=== PATIENT | male | born 1965 | race Two or more races ===

== ENCOUNTER → 2022-02-17 12:35 | Outpatient (BNVA) | payer OTHER, SELFPAY | PROVIDERS: PCP Family Medicine; Visit Provider Student in an Organized Health Care Education/Training Program | DX: M79.7 Fibromyalgia (principal); Z79.899 Other long term (current) drug therapy | CPT/HCPCS: 99202 ==

== ENCOUNTER → 2022-08-05 11:12 | Outpatient (BNVA) | payer OTHER, SELFPAY | PROVIDERS: PCP Family Medicine; Visit Provider Student in an Organized Health Care Education/Training Program | DX: M79.7 Fibromyalgia (principal) | CPT/HCPCS: 99212 ==

== ENCOUNTER 2025-03-08 11:43 | Outpatient (AMB) | payer OTHER, SELFPAY ==
--- NOTE | 2025-03-08 12:29 | MHC.OFFVIS ---
Intake Visit Reasons: 3m pn Allergies lisinopril Adverse Reaction (Intermediate, Verified 03/08/25 12:35) Unknown Medication List - Last Reconciled 03/08/25 by Zita Sibley CNP amlodipine 10 mg PO DAILY aripiprazole 5 mg PO DAILY bupropion HCl XL 150 mg PO QAM cholecalciferol (vitamin D3) 25 mcg PO DAILY cyclosporine 0.05% (Restasis MultiDose) 3 drps ophthalmic (eye) TID fexofenadine (Allergy Relief (fexofenadine)) 180 mg PO DAILY gabapentin 300 mg PO BEDTIME levothyroxine 200 mcg PO DAILY lorazepam 1 mg PO BEDTIME PRN meclizine 25 mg PO TID metoprolol tartrate 100 mg PO DAILY multivitamin 1 tab PO DAILY HPI Comments Details: 59-year-old man with long history of anxiety and depression following with psychiatrist, and generalized body pain attributed to fibromyalgia for about 10 years following with rheumatology, with burning and electrical sensation in soles of feet when walking and when in bed, and vertigo that occurs episodically with a spinning sensation and imbalance that can last few hours. He was doing okay. He was taking gabapentin at bedtime which may have helped a little, but was still having burning and electrical sensation in feet. Balance was not so good, and he would sometimes use his cane. Using meclizine as needed for vertigo which helps. FM pains all over body continue. Sleep was up and down. He was working with therapist and psychiatrist. [facility] Medical History Allergic rhinitis Asthma BPH (benign prostatic hyperplasia) Chronic insomnia Chronic low back pain Eczema Fibromyalgia ELTON (generalized anxiety disorder) GERD (gastroesophageal reflux disease) Hypertension Hypothyroidism MDD (major depressive disorder) Obesity Plantar fasciitis PTSD (post-traumatic stress disorder) Surgical History History of surgery of head Family History Brother PUD (peptic ulcer disease) Father Cancer of prostate Mother Coronary artery disease Type 2 diabetes mellitus Osteoporosis Sister Coronary artery disease HIV (human immunodeficiency virus infection) History of thyroid disorder FH: ovarian cancer Type 2 diabetes mellitus Social History Household Members Other:: lives alone Housing: Apartment Alcohol intake: never Patient Tobacco Use Status: Never used Tobacco e-Cigarette/Vaping Use: Never Used service: No Current occupational status: disabled Current occupation: used to work in a bakery as helper, currently on disability Review of Systems Const Denies chills, Denies daytime sleepiness, Denies difficulty sleeping, Denies fatigue, Denies fever(s), Denies frequent falls, Reports headache(s), Denies increased appetite, Denies poor appetite, Denies snoring, Denies weakness, Denies weight gain and Denies weight loss Eyes Denies loss of vision ENT Denies vertigo, Reports dizziness, Reports headache(s) and Reports neck pain Card Denies chest pain at rest, Denies chest pain with activity, Denies syncope, Denies leg edema, Denies palpitations, Denies dyspnea and Denies dyspnea on exertion Resp Denies cough, Denies dyspnea, Denies dyspnea on exertion and Denies snoring GI Denies abdominal pain, Denies constipation, Denies heartburn, Denies diarrhea and Denies nausea Denies urinary frequency, Denies urinary incontinence and Denies urinary urgency Musc Denies abnormal gait, Reports back pain, Reports myalgias, Reports arthralgias, Reports neck pain, Denies numbness and Denies tingling Neuro Denies abnormal gait, Denies vertigo, Reports dizziness, Denies syncope, Denies frequent falls, Reports headache(s), Denies lack of coordination, Denies loss of vision, Denies memory loss, Denies numbness, Denies Other visual disturbances, Denies restless legs, Denies seizure-like activity, Denies tingling, Denies paresthesias, Denies tremor(s) and Denies weakness Psych Reports anxiety, Reports depression, Denies auditory hallucinations, Denies memory loss and Denies visual hallucinations Endo Denies fatigue and Denies palpitations Physical Exam Const Other: General Appearance:? normal, in no acute distress. Heart:? S1, S2 normal, no murmurs. Lungs:? clear anteriorly and posteriorly. Musculoskeletal:? normal. Extremities:? no edema. Psych:? alert, oriented, cognitive function intact, cooperative with exam. Neuro Other: Abnormal Neurological Findings:?Absent ankle reflexes. Blunting of pinprick sensation in toes. ? Mental Status: alert and oriented X 3. Normal attention, orientation, memory, and affect. Cranial Nerves: Pupils are equal, round, and reactive to light. External ocular muscles are intact. Visual esteban are full, no ptosis. Face is symmetrical, no facial weakness or droop. Facial sensations are normal. Tongue protrudes in midline. Palate elevates symmetrically. Shoulder shrugging is normal Motor Examination: Normal muscle tone, bulk and strength. No atrophy or fasciculations. No drift of the extended upper extremities. DTR 2+ with absent ankle reflexes. Plantars are flexor. Sensory Exam: As above, otherwise normal light touch, temperature, pinprick, vibration, and joint-position sensations. Rhomberg sign is absent. Coordination: No ataxia. No titubation. Gait Exam: Within normal limits. Cerebellar Signs: Hycldb-dh-ycia is okay. Extrapyramidal System: No tremor, rigidity with normal facial expressions. No bradykinesia. No bradyphrenia. Normal arm swing and posture. No propulsion or retropulsion. Speech: Normal. Results Reviewed Results Reviewed: 11/22/24 NCV/EMG LE Sensory plantars absent bilaterally in the lower extremities. Normal EMG in the L4-S1 innervated muscles. 11/2024 A1c 5.4 Assessment & Plan Assessment & Plan (1) Peripheral neuropathy: Code(s): G62.9 - Polyneuropathy, unspecified Category: Medical Qualifiers: Peripheral neuropathy type: polyneuropathy, unspecified Qualified Code(s): G62.9 - Polyneuropathy, unspecified Plan: Increase gabapentin 300mg 1 capsule twice a day x1 week, then 1 capsule three times a day. (2) Vertigo: Code(s): R42 - Dizziness and giddiness Category: Medical Plan: Continue meclizine 25mg 1 tablet as needed q8h for dizziness #60 for 30 days. (3) Fibromyalgia: Code(s): M79.7 - Fibromyalgia Category: Medical Plan . Medications: New gabapentin 300 mg orally 1 cap twice a day x1 week, then 1 cap three times a day; 270 caps 1RF 90 days Coding Level of Care Code Est Pt Level 4 (10225) Diagnoses Peripheral polyneuropathy G62.9 Peripheral neuropathy type: polyneuropathy, unspecified Vertigo R42 Fibromyalgia M79.7
--- OUTSIDE RECORDS SUMMARY | 2025-03-08 14:56 | XMS_ITS | Clinical Summary ---
Author Organization [facility] Address [address] [place] [id number] Phone Care Team Providers Care Chief Lending Officer Name Role Phone Antonia Chinchilla MD Unavailable [phone] Antonia Chinchilla MD Primary Care Provider Allergies Active Allergy Reactions Criticality Noted Date Comments Lisinopril 02/04/2024 Medications pregabalin (LYRICA) 50 MG capsule Take 50 mg by mouth 2 (two) times a day. Active metoprolol tartrate (LOPRESSOR) 100 MG tablet Take 100 mg by mouth daily. Active amLODIPine (NORVASC) 10 MG tablet Take 10 mg by mouth daily. Active levothyroxine (SYNTHROID, LEVOTHROID) 200 MCG tablet Take 200 mcg by mouth every morning. Active famotidine (PEPCID) 20 MG tablet Take 20 mg by mouth 2 (two) times a day as needed for heartburn. Active montelukast (SINGULAIR) 10 mg tablet Take 10 mg by mouth nightly at bedtime. Active clonazePAM (KLONOPIN) 1 MG tablet Take 1 mg by mouth daily. Active buPROPion (WELLBUTRIN XL) 150 MG ER 24 hr tablet Take 300 mg by mouth daily. Active cholecalciferol (VITAMIN D3) 25 MCG (1,000 unit) tablet Take 1,000 Units by mouth daily. Active ARIPiprazole (ABILIFY) 5 MG tablet Take 5 mg by mouth daily. Active cycloSPORINE (RESTASIS) 0.05 % suspension Place 3 drops into each eye 2 (two) times a day. Active MULTIVITAMIN ORAL Take by mouth daily. Active azelastine (ASTELIN) 137 mcg (0.1 %) nasal spray by Nasal route 2 (two) times a day. 02/13/2024 Active cyclobenzaprine (FLEXERIL) 5 MG tablet TAKE 1 TABLET BY MOUTH AT BEDTIME NEEDED FOR MUSCLE SPASMS FOR UP TO 30 DAYS. 12/21/2023 Active fexofenadine (ISRA) 180 MG tablet Take 180 mg by mouth daily. Active celecoxib (CELEBREX) 100 MG capsuleIndicati ons:Generalized pain Take 1 capsule (100 mg total) by mouth 2 (two) times a day with meals. 180 capsule 04/04/2024 Active Active Problems Problem Noted Date Diagnosed Date Generalized pain 03/03/2024 Overview (03/03/2024): Longstanding fibromyalgia dx; previous rheumatologists include Dr. Ibrahim, Dr. Cordova, Dr. Perez Medication hx: High dose gabapentin not effective Duloxetine not effective No milnacipran trial Current pregabalin 50 mg twice daily inadequate Follows with psychiatry for co-morbid depression and PTSD Assessment & Plan (03/03/2024 3:58 PM EDT): Chronic generalized pain in context of co-morbid depression c/w fibromyalgia dx. General tx approach to fibromyalgia reviewed today, including specifically restorative sleep, medications, low impact aerobic exercise, and counseling to help cope with chronic pain. Written information on fibromyalgia provided for patient review. No specific historical or physical evidence s/o underlying or co-morbid inflammatory arthritis or autoimmune connective tissue disease though no rheumatology records available for my review today. DDx includes underlying or co-morbid peripheral neuropathy as well as OA as below. Patient amenable to trial celecoxib 100 mg twice daily. I have advised him that I do not routinely follow patients for fibromyalgia mgmt, as tx is not rheumatology-specific and can be appropriately directed by his PCP. If celecoxib provides no significant benefit and dedicated neuropathy evaluation is negative recommend trial of slightly increased pregabalin dose, e.g. to 75 mg bid. Sicca syndrome 03/03/2024 Assessment & Plan (03/03/2024 3:57 PM EDT): Multiple medications likely exacerbating xerostomia including pregabalin, cyclobenzaprine, aripiprazole, and bupropion. True Sjogren's unlikely but baseline serologies with next routine labs for completeness. Neuropathic pain of both feet 03/03/2024 Assessment & Plan (03/03/2024 3:54 PM EDT): Hyperalgesia of bl MTPs concerning for possible peripheral neuropathy; baseline labs ordered to be drawn with next routine lab draw. Recommend referral to neurology for dedicated neuropathy evaluation if this has not been previously completed - deferred to PCP. Muscle spasm 03/03/2024 Assessment & Plan (03/03/2024 3:56 PM EDT): Baseline labs; of note probable RLS by most recent sleep study per patient report Family History Medical History Relation Comments Fibromyalgia Sister Relation Status Comments Sister Social History Tobacco Use Types Packs/Day Years Used Date Smoking Tobacco: Never Smokeless Tobacco: Never Alcohol Use Standard Drinks/Week Comments Not Currently 0 (1 standard drink = 0.6 oz pur e alcohol) Education Answer Date Recorded Are you interested in more education? Not on merlene e 09/21/2023 Are you concerned about learning? Not on file 09/21/2023 No 09/21/2023 No 09/21/2023 Digital Access Answer Date Recorded No 09/21/2023 No 09/21/2023 Reliable internet access at home? Not on file 09/21/2023 Device with a working camera? Not on file Sex and Gender Information Value Date Recorded Sex Assigned at Not on file Legal Sex Male 12:59 PM EDT Gender Identity Not on file Sexual Orientation Not on file Last Filed Vital Signs Vital Sign Reading Time Taken Comments Blood Pressure 142/90 03/03/2024 12:48 PM EDT Pulse 84 03/03/2024 12:48 PM EDT Temperature - - Respiratory Rate - - Oxygen Saturation 99% 03/03/2024 12: 48 PM EDT Inhaled Oxygen Concentration - - Weight 99.3 kg (219 lb) 03/03/2024 12:4 8 PM EDT with shoes Height 165.1 cm (5' 5 ) 03/03/2024 12:4 8 PM EDT patient reported Body Mass Index 36.44 03/03/2024 12:48 PM EDT Plan of Treatment Upcoming Encounters Date Type Department Care Team (Late st Contact Info) Description 03/10/2025 11:40 AM EDT Office Visit [facility] Rheumatology [address] [place] [address] Melissa Gautam MD, MPH [address], [address] [place] [address] [address] [place] [address] Health Maintenance Due Date Last Done Comments Adult Td,Tdap Booster 1963 DEPRESSION SCREENING 1975 HEPATITIS C SCREENING 1981 HIV ONE-TIME SCREENING (18-6 5 YEARS) 1981 COLOGUARD 2008 COLONOSCOPY 2008 COLORECTAL CANCER SCREENING 2008 FIT TEST 2008 FOBT 2008 SIGMOIDOSCOPY 2008 VIRTUAL COLONOSCOPY 2008 PNEUMOCOCCAL VACCINES (50+ y ears) (1 of 1 - PCV) 2013 ZOSTER VACCINES (1 of 2) 2013 INFLUENZA VACCINE (#1) 2025 COVID-19 VACCINE ( - 2023-2 5 season) 2025 TSH LEVEL 06/27/2025 06/27/2024 SCREENING FOR DIABETES 03/11/2027 03/11/2024 LIPID PANEL 03/17/2028 03/17/2023 RSV VACCINE (1 - 1-dose 75+ series) 2038 SMOKING STATUS SCREENING (On ce After 26 Yrs) Completed 03/03/2024 HEPATITIS A VACCINES Aged Out No long er eligible based on patient's age to complete this topic HIB VACCINES Aged Out No longer eligi ble based on patient's age to complete this topic MENINGOCOCCAL VACCINES (ACWY) Aged Out No longer eligible based on patient's age to complete this topic MENINGOCOCCAL VACCINES (B) Aged Out N o longer eligible based on patient's age to complete this topic Medical Devices Not on file Insurance MEDICARE REPLACEMENT CARE MEDICARE REPLACEMENT UNIT [address] [place] [address] CARE MEDICARE REPLACEMENT CARE MEDICARE REPLACEMENT MEDICARE REPLACEMENT MEDICARE REPLACEMENT MEDICARE REPLACEMENT [facility] ONE CARE MEDICARE REPLACEMENT [facility] ONE CARE MEDICARE REPLACEMENT Care Teams Chief Lending Officer Relationship Specialty Start Date End Date Antonia Chinchilla MD PCP - General Family Medicine 03/14/24 Antonia Chinchilla MD Family Medicine 03/23/23 Additional Source Comments The information contained in this document represents components of the legal health record. It is not the complete legal health record.[facility]
--- OUTSIDE RECORDS SUMMARY | 2025-03-08 14:56 | XMS_ITS | Clinical Summary ---
Author Organization [place] [address] [facility] Building Address [facility] [place] [address] Phone Care Team Providers Care Liquor Clerk Name Role Phone Johanne Baron DO Primary Care Provider [phone] Allergies Active Allergy Reactions Criticality Noted Date Comments Lisinopril Other 10/18/2021 Throat irritation. Medications ARIPiprazole (ABILIFY) 5 mg tablet Take 1 Tablet by mouth daily. 08/21/19 22 Active clonazePAM (KlonoPIN) 1 mg tablet Take 1 Tablet by mouth daily. Active cycloSPORINE (Restasis MultiDose) 0.05 % drops Place 3 Drops into both eyes 2 Times Daily. 09/16/19 22 Active buPROPion XL (WELLBUTRIN XL) 300 mg 24 hr tablet Take 1 tablet (300 mg total) by mouth 1 (one) time each day. 04/06/20 24 Active celecoxib (CeleBREX) 100 mg capsule Take 1 capsule (100 mg total) by mouth 2 times daily. 04/04/20 24 Active albuterol HFA (PROAIR HFA ; PROVENTIL HFA ; VENTOLIN HFA) 90 mcg/actuation inhaler INHALE 2 PUFFS INTO THE LUNGS EVERY 4 HOURS NEEDED FOR COUGH, WHEEZING OR SHORTNESS OF BREATH. 18 each 1 09/22/19 25 Active amLODIPine (NORVASC) 10 mg tabletIndicatio ns:Primary hypertension Take 1 tablet (10 mg total) by mouth 1 (one) time each day. 90 each 1 10/27/19 25 025 Active metoprolol succinate (TOPROL-XL) 100 mg 24 hr tabletIndicatio ns:Primary hypertension Take 1 tablet (100 mg total) by mouth 1 (one) time each day. Do not crush or chew. 90 each 1 10/27/19 25 025 Active famotidine (PEPCID) 20 mg tabletIndicatio ns:Hypothyroidi sm, unspecified type Take 1 tablet (20 mg total) by mouth 2 (two) times a day. 180 each 1 10/27/19 25 025 Active levothyroxine (SYNTHROID, LEVOTHROID) 200 mcg tablet Take 6 days a week. Skip Sundays 24 tablet 2 02/15/20 25 Active montelukast (SINGULAIR) 10 mg tabletIndicatio ns:Other seasonal allergic rhinitis,Allerg ic rhinitis, unspecified TOME 1 TABLETA POR VIA ORAL TODOS LOS PALMA AL ACOSTARSE 90 tablet 1 03/03/20 25 Active levocetirizine (XYZAL) 5 mg tablet TAKE 1 TABLET BY MOUTH 1 TIME EACH DAY IN THE EVENING. 90 tablet 1 03/08/20 25 Active montelukast (SINGULAIR) 10 mg tabletIndicatio ns:Other seasonal allergic rhinitis,Allerg ic rhinitis, unspecified Take 1 tablet (10 mg total) by mouth at bedtime. 90 tablet 1 09/13/19 25 025 Discontinued levocetirizine (XYZAL) 5 mg tablet Take 1 tablet (5 mg total) by mouth 1 (one) time each day in the evening. 90 tablet 1 09/20/19 25 025 Discontinued levothyroxine (SYNTHROID, LEVOTHROID) 200 mcg tablet Take 1 tablet (200 mcg total) by mouth 1 (one) time each day before breakfast. 30 tablet 2 12/28/19 25 025 Discontinued(Re order) Active Problems Problem Noted Date Diagnosed Date Class 2 severe obesity due t o excess calories with serious comorbidity and body mass index (BMI) of 36.0 to 36.9 in adult ([facility] V24, [facility] V28) 05/19/2024 Generalized pain 03/03/2024 Overview (06/27/2024): Longstanding fibromyalgia dx; previous rheumatologists include Dr. Ibrahim, Dr. Cordova, Dr. Perez Medication hx: High dose gabapentin not effective Duloxetine not effective No milnacipran trial Current pregabalin 50 mg twice daily inadequate Follows with psychiatry for co-morbid depression and PTSD Muscle spasm 03/03/2024 Neuropathic pain of both feet 03/03/2024 Sicca syndrome ([facility] V24) 03/03/2024 Allergic rhinitis 10/18/2021 Asthma 10/18/2021 BPH (benign prostatic hyperplasia) 10/18/2021 Chronic insomnia 10/18/2021 Chronic low back pain 10/18/2021 Fibromyalgia 10/18/2021 Eczema 10/18/2021 External hemorrhoids 10/18/2021 GERD (gastroesophageal reflux disease) Hypothyroidism 10/18/2021 Plantar fasciitis 10/18/2021 Moderate episode of recurren t major depressive disorder ([facility] V24, [facility] V28) 10/14/2021 Primary hypertension 10/14/2021 Generalized anxiety disorder 10/14/2021 PTSD (post-traumatic stress disorder) 10/14/2021 Seasonal allergies 10/14/2021 Encounters Date Type Department Care Team Description 01/23/2025 11:30 AM EDT [facility] [address], [place] [phone] Yamileth Humphreys, SARTHAK Primary hypertension (Primary Dx); Fibromyalgia; Hypothyroidism, unspecified type; Depression with anxiety; Chronic sinusitis, unspecified location 12/13/2024 Telephone Internal Medicine - [address] [phone] Johanne Baron DO 12/13/2024 [facility]phone [facility] [address] [place] [address] Lori Anderson MA from Last 3 Months Immunizations Name Administration Dates Next Due Hepatitis B (Ytwaydt-J-Enxhq , Recombivax HB-Adult) 19yo and older 05/07/2016,01/04/2016,12/03/2015 Influenza Quadravalent, MDCK , 0.5ml, preservative free (Flucelvax) 6mo and older 03/07/2023,05/12/2022,04/11/2020 Influenza Quadrivalent, 0.5m l, preservative free (Fluarix; FluLaval; Fluzone) ages 6mo and older (Afluria) 3yo and older 03/18/2021,03/11/2017,03/18/2016 Influenza trivalent, 0.5mL, preservative free (Fluarix; FluLaval; Fluzone) ages 6mo and older (Afluria) 3 years and older 03/03/2023,03/18/2016 Influenza trivalent, MDCK, 0 .5mL, preservative free (Flucelvax) 6mo and older 03/31/2024 Influenza trivalent, with pr eservative (Fluzone; Afluria) 6mo and older 03/18/2021,03/11/2017,03/18/2016,03/21 Influenza, Unspecified 04/11/2020 MMR, measles mumps and rubel la Live (Priorix; M-M-R II) 12mo and older 04/11/2016 Pneumococcal conjugate 20 va lent (Prevnar 20, PCV 20) 2mo and older 03/07/2023 Pneumococcal polysaccharide 23 valent (Pneumovax 23) 2yo and older 04/11/2016 TD, Adsorbed, Preservative Free 07/24/2009 Tdap Tetanus diptheria acell ular pertussis (Boostrix; Adacel) 7yo and older 01/29/2022 Tetanus Toxoid, Unspecified 07/24/2009 Zoster recombinant (Shingrix ) 19yo and older 04/11/2020,04/11/2020,12/09/2017,12/09 Surgical History Surgery Date Site/Laterality Comments COLONOSCOPY Medical History Medical History Date Comments BPH (benign prostatic hyperplasia) 10/18/2021 DX:BPH (benign prostatic hyperplasia) Chronic insomnia 10/18/2021 DX:Chronic inso mnia Chronic low back pain 10/18/2021 DX:Chronic low back pain Eczema 10/18/2021 DX:Eczema Fibromyalgia 10/18/2021 DX:Fibromyalgia External hemorrhoids 10/18/2021 DX:External hemorrhoids GERD (gastroesophageal reflux disease) 10/18/2021 DX:GERD (gastroesophageal reflux disease) Hypothyroidism 10/18/2021 DX:Hypothyroidis m Plantar fasciitis 10/18/2021 DX:Plantar fas ciitis Generalized anxiety disorder 10/14/2021 DX: Generalized anxiety disorder Asthma 10/18/2021 DX:Asthma Allergic rhinitis 10/18/2021 DX:Allergic rh initis Moderate episode of recurren t major depressive disorder ([facility] V24, [facility] V28) 10/14/2021 DX:Moderate episode of recur rent major depressive disorder (HCC) Primary hypertension 10/14/2021 DX:Primary hypertension PTSD (post-traumatic stress disorder) 10/14/2021 DX:PTSD (post-traumatic stress disorder) Seasonal allergies 10/14/2021 DX:Seasonal a llergies Family History Medical History Relation Name Comments Other: varicose vein Brother 1 No Known Problems Brother 2 Prostate cancer Father No Known Problems Maternal Grandfather Other: PUD Maternal Grandmother Coronary artery disease Mother Type II DM, osteoporosis. No Known Problems Paternal Grandfather No Known Problems Paternal Grandmother Other: hiv Sister 1 Thyroid disease Sister 1 Diabetes Sister 2 Other: ovarian cancer Sister 2 Thyroid disease Sister 2 Coronary artery disease Sister 3 Coronary artery disease Sister 4 Relation Name Status Comments Brother 1 Alive Brother 2 Alive Father Maternal Grandfather Maternal Grandmother Mother Paternal Grandfather Paternal Grandmother Sister 1 Alive Sister 2 Alive Sister 3 Alive Sister 4 Alive Social History Tobacco Use Types Packs/Day Years Used Date Smoking Tobacco: Never Smokeless Tobacco: Never Tobacco Cessation:Counseling Given: Not Answered Housing Instability Answer Date Recorde d Are you worried that in the next 2 months you may not have stable housing? Yes 12/16/2024 Food Access & Nutrition Answer Date Rec orded Do you have access to a vari ety of food including fruits and vegetables? Yes 12/16/2024 Access to Healthcare Answer Date Record ed Within the last 3 months, ho w many times did you visit the emergency department for your medical care? 1 12/16/2024 Health Literacy Answer Date Recorded How often do you need to hav e someone help you when you read instructions, pamphlets, or other written material from your doctor or pharmacy? Sometimes 12/16/2024 Caregiver: How often do you need to have someone help you when you read instructions, pamphlets, or other written material from your doctor or pharmacy? Not on file 12/16/2024 Financial Risk Answer Date Recorded How hard is it for you to pa y for the very basics like food, housing, medical care, and air conditioning / heating? Not very hard 12/16/2024 Transportation Answer Date Recorded Has the lack of transportati on kept you from meetings, work, or from getting things needed for daily living? No 2024 Has the lack of transportati on kept you from medical appointments or from getting medications? Not asked 12/16/2024 Social Isolation Answer Date Recorded How often do you feel lonely or isolated from those around you? Sometimes 12/16/2024 Food Risk Answer Date Recorded Within the past 12 months we worried whether our food would run out before we got money to buy more. Never true 12/16/2024 Within the past 12 months th e food we bought just didn't last and we didn't have money to get more. Never true 12/16/2024 Dependent Care Answer Date Recorded Do you need help finding or paying for care for your loved ones. For example, customer care coordinator or elderly care for an older adult? Patient declined 12/16/2024 Education Answer Date Recorded Do you think completing more education or training, like finishing a GED, going to college, or learning a trade, would be helpful for you? N/A 12/16/2024 Employment and Income Answer Date Recor ded During the last four weeks, have you been actively looking for work? Patient declined 12/16/2024 Living Situation Answer Date Recorded What is your living situation? 0 12/16/2024 Interpersonal Safety Answer Date Record ed Physical Abuse 11/07/2024 Verbal Abuse 11/07/2024 Sex and Gender Information Value Date Recorded Sex Assigned at Not on file Legal Sex Male 11:29 PM EST Gender Identity Not on file Sexual Orientation Not on file Obstetrics History Last Filed Vital Signs Vital Sign Reading Time Taken Comments Blood Pressure 122/86 01/23/2025 11:11 AM EDT Pulse 63 01/23/2025 11:11 AM EDT Temperature 36.2 C (97.2 F) 11/07/2024 3:03 PM EDT Respiratory Rate 14 11/07/2024 3:23 PM EDT Oxygen Saturation 98% 11/07/2024 3:23 PM EDT Inhaled Oxygen Concentration - - Weight 108 kg (237 lb 6.4 oz) 01/23/2025 11:11 A M EDT Height 165.1 cm (5' 5 ) 10/28/2024 9:00 AM EDT Body Mass Index 39.51 10/28/2024 9:00 AM EDT Plan of Treatment Health Maintenance Due Date Last Done Comments HIV Screening 06/01/2022 Medicare Annual Wellness Visit 06/01/2022 RSV Immunization Adult Patients (1 - Risk 60-74 years 1-dose series) 2023 COVID-19 Vaccine (4 - season) 2025 06/13/2021, 10/22/2020, 09/28/2020 Influenza Vaccine (#1) 2025 , 03/07/2023, 03/03/2023, Additional history exists Hypertension/CHF/CAD Annual BMP Blood Test 03/11/2025 03/11/2024, 03/17/2023 Social Influencers of Health Screening 12/16/2025 12/16/2024 Cholesterol Screening (Lipid Panel) 03/17/2028 03/17/2023 DTaP,Tdap,and Td Vaccines (2 - Td or Tdap) 01/30/2032 01/29/2022, 07/24/2009 Colorectal Cancer Screening: Colonoscopy 11/07/2034 11/07/2024, 12/12/2021 MMR Vaccines Aged Out 04/11/2016 No longer eligi ble based on patient's age to complete this topic Hepatitis B Vaccines Completed 05/07/2016, 01/04/2016, 12/03/2015 Zoster Vaccines Completed 04/11/2020, 03/29, 12/09/2017, Additional history exists Hepatitis C Screening Completed 01/28/2022 Pneumococcal Vaccine: 50+ Years Completed 03/07/2023, 04/11/2016 Depression Screening Completed 10/19/2024 HIB Vaccines Aged Out No longer eligi ble based on patient's age to complete this topic HPV Vaccines Aged Out No longer eligi ble based on patient's age to complete this topic Hepatitis A Vaccines Aged Out No long er eligible based on patient's age to complete this topic IPV Vaccines Aged Out No longer eligi ble based on patient's age to complete this topic Meningococcal ACWY Vaccine Aged Out N o longer eligible based on patient's age to complete this topic Meningococcal B Vaccine Aged Out No l onger eligible based on patient's age to complete this topic RSV Immunization Patients Under 20 months Aged Out No longer eligible based on patient's age to complete this topic Varicella Vaccines Aged Out No longer eligible based on patient's age to complete this topic Procedures Procedure Name Priority Date/Time Associated Diagnosis Comments TRIIODOTHYRONINE FREE Routine 02/13/2025 12:24 PM EDT Hypothyroidism, unspecified type FREE THYROXINE WITH REFLEX TO FREE TRIIODOTHYRONINE Routine 02/13/2025 12:24 PM EDT Hypothyroidism, unspecified type THYROID STIMULATING HORMONE WITH REFLEX TO FREE T4 AND FREE T3 Routine 02/13/2025 12:24 PM EDT Hypothyroidism, unspecified type FREE THYROXINE WITH REFLEX TO FREE TRIIODOTHYRONINE Routine 12/26/2024 11:55 AM EDT Hypothyroidism, unspecified type HEMOGLOBIN A1C Routine 12/26/2024 11:55 AM EDT Peripheral neuropathy THYROID STIMULATING HORMONE WITH REFLEX TO FREE T4 AND FREE T3 Routine 12/26/2024 11:55 AM EDT Hypothyroidism, unspecified type COLONOSCOPY Routine 11/07/2024 3:02 PM EDT Personal history of colon polyps, unspecified ANNUAL BMP BLOOD TEST Routine 03/17/2023 LIPID PANEL Routine 03/17/2023 HEPATITIS C SCREENING Routine 01/28/2022 from Last 3 Months or Most Recently Relevant to Health Maintenance Results * (ABNORMAL) Thyroid stimulating hormone with reflex to free t4 and free t3 (02/13/2025 12:24 PM EDT) Only the most recent of2 resultswithin the time period is included. TSH 0.32(L) 0.40 - 4.00 mcIU/mL LAB CHEMISTRY METHOD 02/13/2025 2:40 PM EDT [facility] Blood Venous blood specimen / Unknown Venipuncture / Unknown 02/13/2025 12:24 PM EDT 02/13/2025 12:24 PM EDT us Yamileth Humphreys NP LAB BLOOD ORDERABLES Final Resul t Performing Organization Address [facility] de Phone Number [facility] [address] [place] [address], [place] [phone] * Free thyroxine with reflex to free triiodothyronine (02/13/2025 12:24 PM EDT) Only the most recent of2 resultswithin the time period is included. Free T4 1.57 0.70 - 1.80 ng/dL LAB CHEMISTRY METHOD 02/13/2025 4:27 PM EDT [facility] Blood Venous blood specimen / Unknown Venipuncture / Unknown 02/13/2025 12:24 PM EDT 02/13/2025 12:24 PM EDT us Yamileth Humphreys NP LAB BLOOD ORDERABLES Final Resul t Performing Organization Address [facility] de Phone Number [facility] [address] [place] [address], [place] [phone] * Triiodothyronine free (02/13/2025 12:24 PM EDT) T3, Free 319 230 - 420 pcg/dL LAB CHEMISTRY METHOD 02/13/2025 6:18 PM EDT [facility] Blood Venous blood specimen / Unknown Venipuncture / Unknown 02/13/2025 12:24 PM EDT 02/13/2025 12:24 PM EDT us Yamileth Humphreys NP LAB BLOOD ORDERABLES Final Resul t Performing Organization Address City/[facility] Co de Phone Number [facility] [address] [place] [address], [place] [phone] * Hemoglobin A1c (12/26/2024 11:55 AM EDT) Hemoglobin A1C 5.4 <6.5 % LAB CHEMISTRY METHOD 12/26/2024 9:06 PM EDT [facility] Mean Bld Glu Estim. 108 mg/dL LAB CHEMISTRY METHOD 12/26/2024 9:06 PM EDT [facility] Blood Venous blood specimen / Unknown Venipuncture / Unknown 12/26/2024 11:55 AM EDT 12/26/2024 11:55 AM EDT Zita Sibley NP LAB BLOOD ORDERABLES Jessie justice Result [facility] [address] [place] [address], * COLONOSCOPY Anesthesia - MAC; [facility] ENDOSCOPY (11/07/2024 3:02 PM EDT) Anatomical Region Laterality Modality Endoscopy 11/07/2024 2:49 PM EDT Impressions 11/07/2024 3:05 PM EDT - The entire examined colon is normal on direct and retroflexion views. - No specimens collected. Recommendation: - Repeat colonoscopy in 5 years for surveillance. Narrative 11/07/2024 3:05 PM EDT [facility] GI Patient Name: Srikanth Mahoney Procedure Date: 11/07/2024 2:49 PM Date of : 1965 Age: 59 Room: ROOM 15 Gender: Male Note Status: Finalized Attending MD: Jae Benitez MD, Procedure Date No Time: 11/07/2024 Procedure: Colonoscopy Indications: High risk colon cancer surveillance: Personal history of colonic polyps Providers: Jae Benitez MD Referring MD: Henry Rosario MD Medicines: Propofol per Anesthesia Complications: No immediate complications. Estimated Blood Loss: Estimated blood loss: none. Procedure: Pre-Anesthesia Assessment: - ASA Grade Assessment: II - A patient with mild systemic disease. After I obtained informed consent, the scope was passed under direct vision. Throughout the procedure, the patient's blood pressure, pulse, and oxygen saturations were monitored continuously.The Olympus Colonoscope was introduced through the anus and advanced to the cecum, identified by appendiceal orifice and ileocecal valve. The colonoscopy was performed without difficulty. The patient tolerated the procedure well. The quality of the bowel preparation was adequate. Findings: The perianal and digital rectal examinations were normal. The entire examined colon appeared normal on direct and retroflexion views. Procedure Code(s): --- Professional --- 96647, Colonoscopy, flexible; diagnostic, including collection of specimen(s) by brushing or washing, when performed (separate procedure) G0105, Colorectal cancer screening; colonoscopy on individual at high risk Diagnosis Code(s): --- Professional --- Z86.010, Personal history of colonic polyps CPT copyright 2020 [employer]. All rights reserved. The codes documented in this report are preliminary and upon patient relations liaison review may be revised to meet current compliance requirements. Jae Benitez MD 11/07/2024 3:04:56 PM This report has been signed electronically.Jae Benitez MD Number of Addenda: 0 Note Initiated On: 11/07/2024 2:49 PM Scope In: Scope Out: Endoscopy Department at [facility] - [address] [place] [phone] Procedure Note Jae Benitez MD - 11/07/2024 [facility] GI Patient Name: Srikanth Mahoney Procedure Date: 11/07/2024 2:49 PM Date of : 1965 Age: 59 Room: ROOM 15 Gender: Male Note Status: Finalized Attending MD: Jae Benitez MD, Procedure Date No Time: 11/07/2024 Procedure: Colonoscopy Indications: High risk colon cancer surveillance: Personalhistory of colonic polyps Providers: Jae Benitez MD Referring MD: Henry Rosario MD Medicines: Propofol per Anesthesia Complications: No immediate complications. Estimated Blood Loss: Estimated blood loss: none. Procedure: Pre-Anesthesia Assessment: - ASA Grade Assessment: II - A patient with mild systemic disease. After I obtained informed consent, the scope was passed under direct vision. Throughout theprocedure, the patient's blood pressure, pulse, and oxygen saturations were monitored continuously.The Olympus Colonoscope was introduced through the anus and advanced to the cecum, identified by appendiceal orifice and ileocecal valve. The colonoscopy was performed without difficulty. The patient tolerated the procedure well. The quality of the bowel preparation was adequate. Findings: The perianal and digital rectal examinations were normal. The entire examined colon appeared normal on direct and retroflexion views. Procedure Code(s): --- Professional --- 23381, Colonoscopy, flexible; diagnostic, including collection of specimen(s) by brushing or washing,when performed (separate procedure) G0105, Colorectal cancer screening; colonoscopy on individual at high risk Diagnosis Code(s): --- Professional --- Z86.010, Personal history of colonic polyps CPT copyright 2020 [employer]. All rights reserved. The codes documented in this report are preliminary and upon patient relations liaison reviewmay be revised to meet current compliance requirements. Jae Benitez MD 11/07/2024 3:04:56 PM This report has been signed electronically.Jae Benitez MD Number of Addenda: 0 Note Initiated On: 11/07/2024 2:49 PM Scope In: Scope Out: Endoscopy Department at [facility] - [address] [place] [phone] IMPRESSION: - The entire examined colon is normal on direct and retroflexion views. - No specimens collected. Recommendation: - Repeat colonoscopy in 5 years for surveillance. Henry Rosario MD GI~PROCEDURE ORDERABLES Final Result * Annual BMP Blood Test (03/17/2023) Pathologist [facility] Annual [facility] Blood Test abstracted Historical Provider HEALTH MAINTENANCE Final Result * (ABNORMAL) Lipid panel (03/17/2023) LDL/HDL Ratio 5(A) 0 - 4 Triglycerides 189(A) 0 - 150 mg/dL Cholesterol 191 0 - 200 mg/dL HDL 38(A) >=40 mg/dL LDL Cholesterol 116(A) 0 - 100 mg/dL Blood Venous blood specimen / Unknown Historical Provider LAB BLOOD ORDERABLES Jessie l Result * Hepatitis C Screening (01/28/2022) Hepatitis C Screening abstracted Historical Provider HEALTH MAINTENANCE Final Result from Last 3 Months or Most Recently Relevant to Health Maintenance Insurance [facility] MEDICARE Member Subscriber Plan / Payer (Ef fective 2014-Present) Name:SRIKANTH MAHONEY Relation to Subscriber:Self Name:Srikanth Mahoney Payer ID:[id number] Group ID:[id number] Type:Not on file Address: [place] [address] [address] [phone] Care Teams Liquor Clerk Relationship Specialty Start Date End Date Johanne Baron DO [facility] [place] [address] PCP - General Internal Medicine 05/18/24
== END 2025-03-08 12:50 | disposition home or self-care (01) ==
LOC: HO.HSM 11:43
PROVIDERS: PCP Internal Medicine; Referring Provider Internal Medicine; Visit Provider Registered Nurse
DX: G62.9 Polyneuropathy, unspecified (principal); R42 Dizziness and giddiness; M79.7 Fibromyalgia
CPT/HCPCS: 99214

== ENCOUNTER → 2025-03-08 11:43 | Outpatient (BNVA) | payer OTHER, SELFPAY | PROVIDERS: PCP Internal Medicine; Referring Provider Internal Medicine; Visit Provider Registered Nurse | DX: G62.9 Polyneuropathy, unspecified (principal); R42 Dizziness and giddiness; M79.7 Fibromyalgia | CPT/HCPCS: 99212 ==

== ENCOUNTER 2025-04-06 08:23 | Outpatient (AMB) | payer OTHER, SELFPAY ==
[2025-04-06 08:38] VITALS: BP 150/100; PULSE 93; TEMP 36.1; O2SAT 99; BMI 40.0
--- NOTE | 2025-04-06 08:38 | A.OFFPC_ITS ---
Vital Signs 04/06/25 08:38 Height 5 ft 5 in Weight 240 lb 2 oz BMI 40.0 BP 150/100 H Blood Pressure Location Lt brachial Position Sitting Pulse 93 Pulse Source Pulse Oximeter Temp 97.0 F Temp Source Temporal Artery Scan Pulse Oximetry (%) 99 Oxygen Delivery Method Room Air Intake Visit Reasons: Establish Care Allergies lisinopril Adverse Reaction (Intermediate, Verified 04/06/25 08:41) Unknown Tobacco use date assessed: 04/06/25 Dental Screening Dental Screen Date: 04/06/25 Did you have a dental visit in the last 12 months?: Yes Did you have a dental problem in the last 6 months where you did not have access to dental care?: No Was dental information given to patient?: Patient has dentist HPI HPI Comments History of Present Illness Details The patient is a 59-year-old male presenting for the establishment of care and management of multiple chronic conditions. The patient reports a history of benign prostatic hyperplasia, experiencing nocturia up to four times per night and a sensation of incomplete bladder emptying. He has not been on medication for this condition, and his urologist has advised that medication may be considered if symptoms worsen. The patient has a history of sinusitis with nasal polyps, which has been causing significant nasal obstruction and insomnia due to difficulty breathing at night. He has consulted an ENT specialist who recommended surgery, which the patient has opted for to alleviate symptoms. The patient is on multiple medications including amlodipine for hypertension, which he takes regularly. He also reports taking gabapentin as needed for anxiety prescribed by rheumatology, and levothyroxine for thyroid management. The patient experiences chronic arm pain, for which he uses a TENS unit at home for relief. He has tried [id number] medications like Tylenol and ibuprofen with limited relief. The patient reports symptoms of gastroesophageal reflux disease, for which he has been prescribed famotidine. He reports history precancerous polyps in the stomach, which were removed surgically but no records of it in the patient chart. [facility] Medical History (Updated 04/06/25 @ 10:10 by Rachelle Guevara MD) Plantar fasciitis Eczema Allergic rhinitis Asthma Fibromyalgia Chronic insomnia ELTON (generalized anxiety disorder) PTSD (post-traumatic stress disorder) MDD (major depressive disorder) Chronic low back pain BPH (benign prostatic hyperplasia) GERD (gastroesophageal reflux disease) Hypothyroidism Obesity Hypertension Surgical History History of surgery of head Family History Brother PUD (peptic ulcer disease) Father Cancer of prostate Mother Coronary artery disease Type 2 diabetes mellitus Osteoporosis Sister Coronary artery disease HIV (human immunodeficiency virus infection) History of thyroid disorder FH: ovarian cancer Type 2 diabetes mellitus Social History Household Members Other:: lives alone Housing: Apartment Alcohol intake: never Patient Tobacco Use Status: Never used Tobacco e-Cigarette/Vaping Use: Never Used service: No Current occupational status: disabled Current occupation: used to work in a bakery as helper, currently on disability Cognitive needs: No Hearing needs: No Vision needs: Yes Questionnaire PHQ-9 Over the last 2 weeks, how often have you been bothered by any of the following problems? 1. Little interest or pleasure in doing things: several days 2. Feeling down, depressed, or hopeless: several days 3. Trouble falling or staying asleep, or sleeping too much: several days 4. Feeling tired or having little energy: several days 5. Poor appetite or overeating: not at all 6. Feeling bad about yourself - or that you are a failure or have let yourself or your family down: not at all 7. Trouble concentrating on things, such as reading the newspaper or watching television: several days 8. Moving or speaking so slowly that other people could have noticed. Or the opposite - being so fidgety or restless that you have been moving around a lot more than usual: not at all 9. Thoughts that you would be better off or of hurting yourself in some way: not at all Total score: 5 Depression Screening Interpretation: Positive (Follows with psychiatrist) Depression Screening Follow-up: In treatment Depression Screening Done: Yes 34832 - PHQ-9 Billing: Yes Source: Developed by Drs. Reed Bernal, Claribel Forbes, Paul Brothers and colleagues, with an educational kiersten from [employer]. Thrive Questionnaire Date Thrive assessed: 03/30/25 I am a: Patient What is your living situation today?: I have a steady place to live Within the past 12 months, did the food you bought not last and you didn't have the money to get more?: I choose not to answer this question Within the past 12 months, did you worry whether your food would run out before you got money to buy more?: I choose not to answer this question Do you have trouble paying for medicines?: I choose not to answer this question Do you have trouble getting transportation to medical appointments?: No Do you have trouble paying your heating and electricity bill?: I choose not to answer this question Do you have trouble taking care of your child, family member or friend?: I choose not to answer this question Do you have trouble with day-to-day activities such as bathing, preparing meals, shopping, managing finances, etc.?: I choose not to answer this question Are you currently unemployed and looking for a job?: I choose not to answer this question Are you interested in more education?: I choose not to answer this question Please select the resources that you would like help with: None Currently or been in a relationship where the following occur: I choose not to answer THRIVE Score: 0 AUDIT C Alcohol Use Questionnaire (AUDIT-C) 1. How often do you have a drink containing alcohol?: Never 3. How often do you have six or more drinks on one occasion?: Never Total Score: 0 ELTON-7 AMB Questionnaire ELTON-7 Date ELTON - 7 assessed: 04/06/25 Feeling nervous, anxious, or on edge: 1 = Several days Not being able to stop or control worryin = Several days Worrying too much about different things: 1 = Several days Trouble relaxin = Several days Being so restless that it is hard to sit still: 1 = Several days Becoming easily annoyed or irritable: 1 = Several days Feeling afraid as if something awful might happen: 0 = Not at all Total ELTON-7 score (0-4 normal; 5-9 mild; 10-14 moderate; 15-21 severe): 6 Source: Developed by Drs. Reed Bernal, Claribel Forbes, Paul Brothers and colleagues, with an educational kiersten from [employer]. ELTON-7 Assessment Billing ELTON-7 Assessment Tool: ELTON-7 Assessment 37446 Review of Systems Const Details: Positives besides what was mentioned in HPI are in BOLD Constitutional: No Weight Change, No Fever, No Chills, No Night Sweats, No Fatigue, No Malaise ENT/Mouth: No Hearing Changes, No Ear Pain, No Nasal Congestion, No Sinus Pain, No Hoarseness, No sore throat, No Rhinorrhea, No Swallowing Difficulty Eyes: No Eye Pain, No Swelling, No Redness, No Foreign Body, No Discharge, No Vision Changes Cardiovascular: No Chest Pain, No SOB, No PND, No Dyspnea on Exertion, No Orthopnea, No Claudication, No Edema, No Palpitations Respiratory: No Cough, No Sputum, No Wheezing, No Smoke Exposure, No Dyspnea Gastrointestinal: No Nausea, No Vomiting, No Diarrhea, No Constipation, No Pain, No Heartburn, No Anorexia, No Dysphagia, No Hematochezia, No Melena, No Flatulence, No Jaundice Genitourinary: No Dysmenorrhea, No DUB, No Dyspareunia, No Dysuria, No Urinary Frequency, No Hematuria, No Urinary Incontinence, No Urgency, No Flank Pain, No Urinary Flow Changes, No Hesitancy Musculoskeletal: No Arthralgias, No Myalgias, No Joint Swelling, No Joint Stiffness, No Back Pain, No Neck Pain, No Injury History Skin: No Skin Lesions, No Pruritis, No Hair Changes, No Breast/Skin Changes, No Nipple Discharge Neuro: No Weakness, No Numbness, No Paresthesias, No Loss of Consciousness, No Syncope, No Dizziness, No Headache, No Coordination Changes, No Recent Falls Psych: No Anxiety/Panic, No Depression, No Insomnia, No Personality Changes, No Delusions, No Rumination, No SI/HI/AH/VH, No Social Issues, No Memory Changes, No Violence/Abuse Hx., No Eating Concerns Heme/Lymph: No Bruising, No Bleeding, No Transfusions History, No Lymphadenopathy Endocrine: No Polyuria, No Polydipsia, No Temperature Intolerance Physical exam (Primary Care) Vital Signs: Last Vital Signs Temp 97.0 F 04/06/25 08:38 Pulse 93 04/06/25 08:38 BP 150/100 H 04/06/25 08:38 Pulse Ox 99 04/06/25 08:38 Oxygen Delivery Method Room Air 04/06/25 08:38 BMI result Body Mass Index 40.0 Tobacco/Smoking Status: Tobacco use Status Tobacco use date assessed 04/06/25 04/06/25 08:45 Patient Tobacco Use Status Never used Tobacco 04/06/25 08:45 e-Cigarette/Vaping Use Never Used 04/06/25 08:45 PHQ-9: PHQ-9 Score PHQ-9: Total score 5 04/06/25 08:45 Depression Screening Interpretation: Positive (Follows with psychiatrist) Depression Screening Follow-up: In treatment Thrive Assessment: Date of Thrive Assessment Date Thrive assessed 03/30/25 04/06/25 08:45 Currently or been in a relationship where the following occur: I choose not to answer Const Other: Pertinent findings are in BOLD GENERAL APPEARANCE NAD, activity normal for age, well developed/ well nourished, no cyanosis, pallor, or diaphoresis. EYES lids/conjunctiva normal. EARS/NOSE/THROAT Mucous membranes moist, nares normal, lips/teeth normal uvula midline without oral pharyngeal erythema, exudate or swelling TMs normal bilaterally. No lymphangitis/lymphedema. HEAD/NECK normocephalic atraumatic, no facial trauma, neck is supple. RESPIRATORY respiratory effort normal, speaks in full sentences, no tripod position, no accessory muscle use. Lungs clear to auscultation without rhonchi, wheezes, rales CARDIAC Regular rate and rhythm, no edema. ABDOMINAL Soft, ND/NT. No evidence of fluid wave. No pulsatile masses on exam, rebound tenderness, Buchanan sign or pain over Mcburney's point. MUSCLES/EXTREMITIES No abnormal range of motion, no swelling. SKIN Warm, pink and dry. No rashes, dermatoses, petechiae or lesions. NEUROLOGICAL Speech is clear and appropriate. Normal level of consciousness. Gait and coordination are normal. 5/5 strength in all extremities. PSYCH Normal mood and affect. Judgement/competence is appropriate Coding Level of Care Code Est Pt Level 5 (60493) Diagnoses Healthcare maintenance Z00.00 Hypothyroidism E03.9 Fibromyalgia M79.7 MDD (major depressive disorder) F32.9 ELTON (generalized anxiety disorder) F41.1 Vertigo R42 Vitamin D deficiency E55.9 Nasal sinus polyp J33.8 Arm pain M79.603 GERD (gastroesophageal reflux disease) K21.9 Hypertension I10 Additional Codes ELTON-7 Assessment Billing - ELTON-7 Assessment Tool: ELTON-7 Assessment 03765 ([id number]) PHQ-9 - 49989 - PHQ-9 Billing: Yes ([id number]) Time Spent (min) 40 Assessment & Plan Assessment & Plan (1) Healthcare maintenance: Code(s): Z00.00 - Encounter for general adult medical examination without abnormal findings Category: Medical Plan: CBC, CMP, Lipid panel, A1C, TSH w T4, vit D. Ordered today.. Shingles 2 doses when >50 yo. Completed. As per patient. COVID: two doses. Completed in the past. As per patient. Pneumococcal: 19-64. Completed in the past. As per patient. Flu vaccine: Completed. Colonoscopy: 45-75. Reports completed it two years ago. He will bring the results next visit. Tdap: Patient will bring results next visit. AAA: 65 -75. NI[address] CT lun - 80. NI. PSA: 50 -70 every two years. HIV: ordered today. HBV: ordered today. HCV: ordered today. (2) Hypothyroidism: Code(s): E03.9 - Hypothyroidism, unspecified Category: Medical Plan: Continue Levothyroxine. Repeat labs ordered today. (3) Fibromyalgia: Code(s): M79.7 - Fibromyalgia Category: Medical Plan: Continue Abilify, Gabapentin PRN. Prescribed by rheumatology. (4) MDD (major depressive disorder): Code(s): F32.9 - Major depressive disorder, single episode, unspecified Category: Medical Plan: Continue Bupropion and clonazepam as prescribed by psychiatrist. Follows with psychiatrist. (5) ELTON (generalized anxiety disorder): Code(s): F41.1 - Generalized anxiety disorder Category: Medical Plan: Same as under MDD. (6) Vertigo: Code(s): R42 - Dizziness and giddiness Category: Medical Plan: Started Meclizine 25 mg daily PRN. (7) Vitamin D deficiency: Code(s): E55.9 - Vitamin D deficiency, unspecified Category: Medical Plan: Continue vit D. Repeat labs ordered today. (8) Nasal sinus polyp: Code(s): J33.8 - Other polyp of sinus Category: Medical Plan: - Surgery planned to alleviate nasal obstruction and improve breathing. (9) Arm pain: Code(s): M79.603 - Pain in arm, unspecified Category: Medical Plan: - Use TENS unit for pain relief and consider [id number] analgesics as needed. (10) GERD (gastroesophageal reflux disease): Code(s): K21.9 - Gastro-esophageal reflux disease without esophagitis Category: Medical Plan: - Continue famotidine for symptom management. (11) Hypertension: Code(s): I10 - Essential (primary) hypertension Category: Medical Plan: Amlodipine, Metoprolol. Plan During the visit, we discussed the patient's multiple chronic conditions, including benign prostatic hyperplasia, sinusitis with nasal polyps, hyp ertension, insomnia, arm pain, and gastroesophageal reflux disease. We agreed on a plan to monitor the symptoms of benign prostatic hyperplasia and consider medication if necessary. The patient opted for surgery to address the nasal polyps, which should help alleviate the associated insomnia. We will continue the current hypertension management with amlodipine and use famotidine for gastroesophageal reflux disease. For arm pain, the patient will continue using a TENS unit and consider [id number]-[id number] analgesics. This includes time spent before the visit reviewing the chart, time spent during the visit, and time spent after the visit and documentation. Medications: New amlodipine 10 mg PO DAILY 90 tabs 3RF cholecalciferol (vitamin D3) 25 mcg PO DAILY 90 caps 3RF famotidine 20 mg PO BID PRN 90 tabs 3RF heartburn levothyroxine 200 mcg PO DAILY 90 tabs 3RF metoprolol tartrate 100 mg PO DAILY 30 tabs 3RF fexofenadine (Allergy Relief (fexofenadine)) 180 mg PO DAILY 90 tabs 3RF Changed From meclizine 25 mg PO TID To meclizine 25 mg PO DAILY PRN 30 tabs 3RF dizziness
== END 2025-04-06 09:30 | disposition home or self-care (01) ==
PROVIDERS: PCP Internal Medicine; Visit Provider Internal Medicine
DX: Z00.00 Encounter for general adult medical examination without abnormal findings (principal); E03.9 Hypothyroidism, unspecified; M79.7 Fibromyalgia; F32.9 Major depressive disorder, single episode, unspecified; F41.1 Generalized anxiety disorder; R42 Dizziness and giddiness; E55.9 Vitamin D deficiency, unspecified; J33.8 Other polyp of sinus; M79.603 Pain in arm, unspecified; K21.9 Gastro-esophageal reflux disease without esophagitis; I10 Essential (primary) hypertension

== ENCOUNTER → 2025-04-06 08:23 | Outpatient (BNVA) | payer OTHER, SELFPAY | PROVIDERS: PCP Internal Medicine; Visit Provider Internal Medicine | DX: Z00.00 Encounter for general adult medical examination without abnormal findings (principal); E03.9 Hypothyroidism, unspecified; M79.7 Fibromyalgia; F32.9 Major depressive disorder, single episode, unspecified; F41.1 Generalized anxiety disorder; R42 Dizziness and giddiness; E55.9 Vitamin D deficiency, unspecified; J33.8 Other polyp of sinus; M79.603 Pain in arm, unspecified; K21.9 Gastro-esophageal reflux disease without esophagitis; I10 Essential (primary) hypertension; Z79.899 Other long term (current) drug therapy; Z13.31 Encounter for screening for depression; Z13.39 Encounter for screening examination for other mental health and behavioral disorders | CPT/HCPCS: 96127; 99396 ==

== ENCOUNTER 2025-04-13 07:46 | Outpatient (REF) | payer OTHER, SELFPAY ==
--- OUTSIDE RECORDS SUMMARY | 2025-04-13 07:50 | XMS_ITS | Clinical Summary ---
Author Organization [place] [address] [address] [facility] Building Address [facility] [place] [address] Phone Care Team Providers Care Manufacturing Assistant Name Role Phone Johanne Baron DO Primary Care Provider [phone] Allergies Active Allergy Reactions Criticality Noted Date Comments Lisinopril Other 10/18/2021 Throat irritation. Medications ARIPiprazole (ABILIFY) 5 mg tablet Take 1 Tablet by mouth daily. 2 Active clonazePAM (KlonoPIN) 1 mg tablet Take 1 Tablet by mouth daily. Active cycloSPORINE (Restasis MultiDose) 0.05 % drops Place 3 Drops into both eyes 2 Times Daily. 2 Active buPROPion XL (WELLBUTRIN XL) 300 mg 24 hr tablet Take 1 tablet (300 mg total) by mouth 1 (one) time each day. 4 Active celecoxib (CeleBREX) 100 mg capsule Take 1 capsule (100 mg total) by mouth 2 times daily. 4 Active albuterol HFA (PROAIR HFA ; PROVENTIL HFA ; VENTOLIN HFA) 90 mcg/actuation inhaler INHALE 2 PUFFS INTO THE LUNGS EVERY 4 HOURS NEEDED FOR COUGH, WHEEZING OR SHORTNESS OF BREATH. 18 each 1 5 Active amLODIPine (NORVASC) 10 mg tabletIndications :Primary hypertension Take 1 tablet (10 mg total) by mouth 1 (one) time each day. 90 each 1 5 04/24/20 25 Active metoprolol succinate (TOPROL-XL) 100 mg 24 hr tabletIndications :Primary hypertension Take 1 tablet (100 mg total) by mouth 1 (one) time each day. Do not crush or chew. 90 each 1 5 04/24/20 25 Active famotidine (PEPCID) 20 mg tabletIndications :Hypothyroidism, unspecified type Take 1 tablet (20 mg total) by mouth 2 (two) times a day. 180 each 1 5 04/24/20 25 Active levothyroxine (SYNTHROID, LEVOTHROID) 200 mcg tablet Take 6 days a week. Skip Sundays 24 tablet 2 5 Active montelukast (SINGULAIR) 10 mg tabletIndications :Other seasonal allergic rhinitis,Allergic rhinitis, unspecified TOME 1 TABLETA POR VIA ORAL TODOS LOS PALMA AL ACOSTARSE 90 tablet 1 5 Active levocetirizine (XYZAL) 5 mg tablet TAKE 1 TABLET BY MOUTH 1 TIME EACH DAY IN THE EVENING. 90 tablet 1 5 Active Active Problems Problem Noted Date Diagnosed Date Class 2 severe obesity due t o excess calories with serious comorbidity and body mass index (BMI) of 36.0 to 36.9 in adult 05/19/2024 Generalized pain 03/03/2024 Overview (06/27/2024): Longstanding fibromyalgia dx; previous rheumatologists include Dr. Ibrahim, Dr. Cordova, Dr. Perez Medication hx: High dose gabapentin not effective Duloxetine not effective No milnacipran trial Current pregabalin 50 mg twice daily inadequate Follows with psychiatry for co-morbid depression and PTSD Muscle spasm 03/03/2024 Neuropathic pain of both feet 03/03/2024 Sicca syndrome ([facility] V24) 03/03/2024 Allergic rhinitis 10/18/2021 Asthma 10/18/2021 BPH (benign prostatic hyperplasia) 10/18/2021 Chronic insomnia 10/18/2021 Chronic low back pain 10/18/2021 Fibromyalgia 10/18/2021 Eczema 10/18/2021 External hemorrhoids 10/18/2021 GERD (gastroesophageal reflux disease) Hypothyroidism 10/18/2021 Plantar fasciitis 10/18/2021 Moderate episode of recurren t major depressive disorder (CMS/[facility] V24, CMS/[facility] V28) 10/14/2021 Primary hypertension 10/14/2021 Generalized anxiety disorder 10/14/2021 PTSD (post-traumatic stress disorder) 10/14/2021 Seasonal allergies 10/14/2021 Encounters Date Type Department Care Team Description 01/23/2025 11:30 AM EDT Office Visit Internal Medicine - [facility] [address] [place] [id number] Yamileth Humphreys NP Primary hypertension (Primary Dx); Fibromyalgia; Hypothyroidism, unspecified type; Depression with anxiety; Chronic sinusitis, unspecified location from Last 3 Months Immunizations Immunization Administration Dates Next Due Hepatitis B (Eofxosy-C-Dqdwm , Recombivax HB-Adult) 19yo and older 05/07/2016,01/04/2016,12/03/2015 [...] episode of recurren t major depressive disorder (CMS/HCC V24, CMS/HCC V28) 10/14/2021 DX:Moderate episode of recur rent major depressive disorder ([facility]) Primary hypertension 10/14/2021 DX:Primary hypertension PTSD (post-traumatic [...] care for your loved ones. For example, director maternal child or elderly care for an older adult? [...] Date Recorded What is your living situation? Unrecognized valu e 12/16/2024 Interpersonal Safety Answer Date Record ed Physical Abuse Unrecognized value 11/07/2024 Verbal Abuse Unrecognized value 11/07/2024 Sex and Gender Information Value Date [...] Health Maintenance Due Date Last Done Comments RSV Immunization Adult Patients (1 - Risk 50-74 years 1-dose series) 2013 HIV Screening 06/01/2022 Medicare Annual Wellness Visit 06/01/2022 COVID-19 Vaccine ( season) 2025 06/13/2021, 10/22/2020, 09/28/2020 Influenza Vaccine [...] 02/13/2025 12:24 PM EDT Hypothyroidism, unspecified type COLONOSCOPY Routine 11/07/2024 3:02 PM EDT Personal history of colon polyps, unspecified ANNUAL BMP BLOOD TEST Routine 03/17/2023 LIPID PANEL Routine 03/17/2023 HEPATITIS C SCREENING Routine 01/28/2022 from Last 3 Months or Most Recently Relevant to Health Maintenance Results * (ABNORMAL) Thyroid stimulating hormone with reflex to free t4 and free t3 (02/13/2025 12:24 PM EDT) TSH 0.32(L) 0.40 - 4.00 mcIU/mL LAB CHEMISTRY METHOD 02/13/2025 2:[address] [facility] Blood Venous blood specimen / Unknown Venipuncture / Unknown 02/13/2025 12:24 PM EDT 02/13/2025 12:24 PM EDT us Yamileth Humphreys NP LAB BLOOD ORDERABLES Final Resul t Performing Organization Address [facility] Co de Phone Number [facility] [address] [place] [address], * Free thyroxine with reflex to free triiodothyronine (02/13/2025 12:24 PM EDT) Free T4 1.57 0.70 - 1.80 ng/dL LAB CHEMISTRY METHOD 02/13/2025 4:[address] [facility] Blood Venous blood specimen / Unknown Venipuncture / Unknown 02/13/2025 12:24 PM EDT 02/13/2025 12:24 PM EDT us Yamileth Humphreys NP LAB BLOOD ORDERABLES Final Resul t Performing Organization Address City/[facility]/ZIP Co de Phone Number [facility] [address] [place] [address], [place] [phone] * Triiodothyronine free (02/13/2025 12:24 PM EDT) T3, Free 319 230 - 420 pcg/dL LAB CHEMISTRY METHOD 02/13/2025 6:[address] [facility] Blood Venous blood specimen / Unknown Venipuncture / Unknown 02/13/2025 12:24 PM EDT 02/13/2025 12:24 PM EDT Yamileth Petr DE LEÓN LAB BLOOD ORDERABLES Final Resul t [facility] [address] [place] [address], * COLONOSCOPY Anesthesia - MAC; [facility] ENDOSCOPY (11/07/2024 3:02 PM EDT) Anatomical Region Laterality Modality Endoscopy 11/07/2024 2:49 PM EDT Impressions 11/07/2024 3:05 PM EDT - The entire examined colon is normal on direct and retroflexion views. - No specimens collected. Recommendation: - Repeat colonoscopy in 5 years for surveillance. Narrative 11/07/2024 3:05 PM EDT [facility] GI Patient Name: Srikanth Mahoney Procedure Date: [...] retroflexion views. Procedure Code(s): --- Professional --- 93462, Colonoscopy, flexible; diagnostic, including collection of specimen(s) by brushing or washing, when performed (separate procedure) G0105, Colorectal cancer screening; colonoscopy on individual at high risk Diagnosis Code(s): --- Professional --- Z86.010, Personal history of colonic polyps CPT copyright 2020 [employer]. All rights reserved. The codes documented in this report are preliminary and upon custom framing specialist review may be revised to meet current compliance requirements. Jae Benitez MD 11/07/2024 3:04:56 PM This report has been signed electronically.Jae Benitez MD Number of Addenda: 0 Note Initiated On: 11/07/2024 2:49 PM Scope In: Scope Out: Endoscopy Department at [facility] - [address] [place] [id number] Procedure Note Jae Benitez MD - 11/07/2024 [facility] GI Patient Name: Srikanth Mahoney Procedure Date: [...] retroflexion views. Procedure Code(s): --- Professional --- 10007, Colonoscopy, flexible; diagnostic, including collection of specimen(s) by brushing or washing,when performed (separate procedure) G0105, Colorectal cancer screening; colonoscopy on individual at high risk Diagnosis Code(s): --- Professional --- Z86.010, Personal history of colonic polyps CPT copyright 2020 [employer]. All rights reserved. The codes documented in this report are preliminary and upon custom framing specialist reviewmay be revised to meet current compliance requirements. Jae Benitez MD 11/07/2024 3:04:56 PM This report has been signed electronically.Jae Benitez MD Number of Addenda: 0 Note Initiated On: 11/07/2024 2:49 PM Scope In: Scope Out: Endoscopy Department at [address] [id number] IMPRESSION: - The entire examined colon is normal on direct and retroflexion views. - No specimens collected. Recommendation: - Repeat colonoscopy in 5 years for surveillance. Henry Rosario MD GI~PROCEDURE ORDERABLES Final Result * Annual BMP Blood Test (03/17/2023) [facility] Annual BMP Blood Test abstracted Result [facility] Provider HEALTH MAINTENANCE Final Result * (ABNORMAL) Lipid panel (03/17/2023) [facility] LDL/HDL Ratio 5(A) 0 - 4 Triglycerides 189(A) 0 - 150 mg/dL Cholesterol 191 0 - 200 mg/dL HDL 38(A) >=40 mg/dL LDL Cholesterol 116(A) 0 - 100 mg/dL Blood Venous blood specimen / Unknown Result [facility] Historical Provider LAB BLOOD ORDERABLES Jessie l Result * Hepatitis C Screening (01/28/2022) [facility] Hepatitis C Screening abstracted [facility] HEALTH MAINTENANCE Final Result from Last 3 Months or Most Recently Relevant to Health Maintenance Insurance [facility] MEDICARE Member Subscriber Plan / Payer (Ef fective 2014-Present) Name:SRIKANTH MAHONEY Relation to Subscriber:Self Name:Sriknath Mahoney Payer ID:[id number] Group ID:[id number] Type:Not on file Address: [address] [facility] [place] [address] Care Teams Manufacturing Assistant Relationship Specialty Start Date End Date Johanne Baron DO [address] [place] [address] PCP - General Internal Medicine 05/18/24
--- OUTSIDE RECORDS SUMMARY | 2025-04-13 07:50 | XMS_ITS | Clinical Summary ---
Author Organization [facility] Address [address] [place] [phone] Phone Care Team Providers Care Clerk Operator Name Role Phone Antonia Chinchilla MD Unavailable [phone] Antonia Chinchilla MD Primary Care Provider Allergies [...] Active Problems Problem Noted Date Diagnosed Date Primary osteoarthritis of both knees 03/10/2025 Assessment & Plan (03/10/2025 12:43 PM EDT): Moderate symptomatic benefit with current celecoxib. Focus discussions of weight loss and quadricep strengthening exercise deferred to primary care physician. Generalized pain 03/03/2024 Overview (03/10/2025): Longstanding fibromyalgia dx; previous rheumatologists include Dr. Ibrahim, Dr. Cordova, Dr. Perez Medication hx: High dose gabapentin not effective Duloxetine not effective No milnacipran trial Previous pregabalin 50 mg twice daily inadequate Follows with psychiatry for co-morbid depression and PTSD Assessment & Plan (03/10/2025 12:42 PM EDT): Fibromyalgia / peripheral neuropathy overlap. I do not have any rheumatology specific interventions to offer this patient given the absence of co-morbid or underlying inflammatory rheumatologic disease. Dedicated discussions of counseling to help cope with chronic pain, as well as benefit of regular routine of low impact aerobic exercise, deferred to his primary care physician. Assessment & Plan (03/03/2024 3:58 PM EDT): [...] to 75 mg bid. Sicca syndrome 03/03/2024 Overview (03/10/2025): SSA negative SSB negative (02/2024) Assessment & Plan (03/10/2025 12:40 PM EDT): Sjogren's significantly less likely given negative Sjogren's serologies. Certainly he is taking multiple medications that can contribute to oral sicca, including cyclobenzaprine, aripiprazole, and bupropion. Assessment & Plan (03/03/2024 3:57 PM EDT): Multiple medications likely exacerbating xerostomia including pregabalin, cyclobenzaprine, aripiprazole, and bupropion. True Sjogren's unlikely but baseline serologies with next routine labs for completeness. Neuropathic pain 03/03/2024 Overview (03/10/2025): Bilateral hands and feet [place] neurology evaluation 02/2025, documentation not available for my review today Pregabalin (50 mg twice daily) previously incompletely effective Assessment & Plan (03/10/2025 12:39 PM EDT): Reviewed with patient today that the pattern of burning pain and abnormal sensation of his bilateral hands and feet favors peripheral neuropathy, and that he needs neurology follow-up as planned. I have encouraged him to start the gabapentin recently prescribed by his neurologist. There is no historical, physical, or serologic evidence suggestive of underlying inflammatory arthritis or autoimmune connective tissue disease. There is no current indication for further rheumatology-specific evaluation or follow-up. I am happy to reevaluate for any clinically relevant change. Assessment & Plan (03/03/2024 3:54 PM EDT): [...] most recent sleep study per patient report Encounters Date Type Department Care Team Description 03/10/2025 11:40 AM EDT Office Visit [facility] Rheumatology [address] [place] [address] Melissa Gautam MD, MPH Neuropathic pain (Primary Dx); Sicca syndrome; Generalized pain; Primary osteoarthritis of both knees from Last 3 Months Family History Medical History Relation Comments Fibromyalgia Sister Relation Status Comments Sister Social History Tobacco Use Types Packs/Day Years Used Date Smoking Tobacco: Never Smokeless Tobacco: Never Tobacco Cessation:Counseling Given: Not Answered Alcohol Use Standard Drinks/Week Comments Not Currently [...] Pressure 142/90 03/03/2024 12:48 PM EDT Pulse 82 03/10/2025 10:50 AM EDT Temperature 36.3 C (97.3 F) 03/10/2025 10:50 AM EDT Respiratory Rate - - Oxygen Saturation 99% 03/03/2024 12: 48 PM EDT Inhaled Oxygen Concentration - - Weight 101.6 kg (224 lb) 03/10/2025 10: 50 AM EDT Height 165.1 cm (5' 5 ) 03/03/2024 12:4 8 PM EDT patient reported Body Mass Index 37.28 03/03/2024 12:48 PM EDT Plan of Treatment Health Maintenance Due Date Last Done Comments Adult Td,Tdap Booster 1963 DEPRESSION SCREENING 1975 HEPATITIS C SCREENING 1981 HIV ONE-TIME SCREENING (18-65 YEARS) 1981 COLOGUARD 2008 COLONOSCOPY 2008 COLORECTAL CANCER SCREENING 2008 FIT TEST 2008 FOBT 2008 SIGMOIDOSCOPY 2008 VIRTUAL COLONOSCOPY 2008 PNEUMOCOCCAL VACCINES (50+ years) (1 of 1 - PCV) 2013 ZOSTER VACCINES (1 of 2) 2013 INFLUENZA VACCINE (#1) 2025 COVID-19 VACCINE ( - 2024- season) 2025 TSH LEVEL 02/13/2026 02/13/2025, 11/29, 10/26/2024, Additional history exists SCREENING FOR DIABETES 03/11/2027 03/11/2024 LIPID PANEL 03/17/2028 03/17/2023 RSV VACCINE (1 - 1-dose 75+ series) 2038 SMOKING STATUS SCREENING (Once After 26 Yrs) Completed 03/10/2025 HEPATITIS A VACCINES Aged Out No long [...] topic Medical Devices Not on file Insurance [facility] ONE CARE MEDICARE REPLACEMENT CARE MEDICARE REPLACEMENT UNIT [address] [place] [address] CARE MEDICARE REPLACEMENT CARE MEDICARE REPLACEMENT [employer] ONE CARE [address]IC[address] [place] [address] [place] [id number] [place] [address] MEDIC[address] RE[address] [place] [address] [place] [address] [place] [address] ONE CARE MEDICARE REPLACEMENT Care Teams Clerk Operator Relationship Specialty Start Date End Date Antonia Chinchilla MD PCP - General Family Medicine 03/14/24 Antonia Chinchilla MD Family Medicine 03/23/23 Additional Source Comments The information contained in this document represents components of the legal health record. It is not the complete legal health record.[facility]
--- OUTSIDE RECORDS SUMMARY | 2025-04-13 07:50 | XMS_ITS | Data Portability ---
Author Organization [place] [facility], Allergy Address [address] [place] [id number] Care Team Providers Care Security Ambassador Name Role Phone MAGDALENA YOUNG Primary Care Provider [phone] ANGELINA BENSON Referring Provider Assessment Encounter Date Assessment Date Assessment LastModified by Organization Details LastModified Time 02/22/2025 02/22/2025 Srikanth is a 59M presenting with multiple concerns including CRS, nasal obstruction, rhinitis medicamentosa, dysphonia. Flexible laryngoscopy revealed right grade 4 polyps and fungal laryngitis. It is odd that he has unilateral nasal polyposis I do have some concern this could be inverting papilloma versus an antrochoanal polyp. I think further imaging is in order. With his history of allergies, we did discuss the pathophysiology of nasal polyposis and the need for topical steroids as a treatment for this. We did also discuss his Afrin use and likely rhinitis medicamentosa, encouraged him to stop using to prevent further congestion -CT sinus ordered at [facility] -Start prednisone and doxycycline -Encouraged the importance of nasal washes as well as fluticasone - Start Diflucan for fungal laryngitis - Return visit in [address] results, potential biopsy of nasal polyps if not improving versus surgical intervention [email or web address] Not available 02/22/2025 12:32:34 03/23/2025 03/23/2025 Srikanth is a 59M presenting with multiple concerns including CRS, nasal obstruction, rhinitis medicamentosa, dysphonia. Flexible laryngoscopy previously revealed right grade 4 polyps and fungal laryngitis. CT scan showed primarily a right sinonasal polyp from the frontal outflow tract, I still have some concern this potentially could be inverting papilloma rather than just a unilateral polyp. We had a discussion about these findings, and the need for biopsy of tissue in case of potential malignancy. -Encouraged the importance of nasal washes as well as fluticasone We reviewed the clinic findings today with the patient and had an extensive discussion on the natural history of their symptoms and the pathology causing them. The patient has progressive and bothersome symptoms noted previously in the HPI consistent with CRSwNP, which have not improved with optimal medical therapy which include salvage determiner use of nasal saline, nasal steroid, and multiple antibiotic/steroid courses. These findings were confirmed on Nasal Endoscopy and CT . Options were discussed, including conservative management, further medical management with topical, oral, or immunotherapy, and/or surgical intervention. Surgical Discussion: Surgical plan would consist of: Septoplasty, Bilateral Inferior Turbinate Submucosal Reduction, Bilateral genao-ESS We discussed the risks, benefits, and alternatives of surgery, which include bleeding, infection, scarring, nasal septal perforation, saddle nose deformity, cranial base injury, CSF leak, orbital injury, vision loss/diplopia, need for postoperative splinting, or need for further procedures. The expected recovery period was reviewed, which will likely include postoperative debridements and splint removal. The patient understands this is a chronic condition and that any comorbid allergic/inflammat ory/immunologic components will also require ongoing management. After reviewing their options, the patient would like to pursue the surgical route. We will work on getting this scheduled at their earliest convenience. The patient understands they can reach out anytime to further clarify questions or concerns. CT/MRI Location & Date for Image guidance: [facility] on 03/15/25. Bilateral exposed anterior/posterior ethmoid arteries. Bilateral type III Ivania cells. Primarily right sided nasal polyp looks like it is emanating from the frontal sinus outflow tract that is obstructing the [facility] on the right. He does also have a simone bullosa on the left. With scattered ethmoid and sphenoid opacification. [email or web address] Not available 03/23/2025 11:25:13 Plan of Treatment Reminders Order Date Submit Date Provider Last Modified By Organization Details Last Modified Time Details Appointments Post Op 2024 04:00P M SHIVA CRUZ Not available Not available Not available Post Op 2024 04:00P M SHVIA CRUZ Not available Not available Not available Lab None recorded. Referral None recorded. Procedures None recorded. Surgeries septoplas ty (SURG) 2024 025 [email or web address] Not available 03/27/2025 07:19:44 submucous resection inferior turbinate (SURG) 2024 025 [email or web address] Not available 03/27/2025 07:19:44 endoscopy , nasal/sin us, w/ maxillary antrostom y & tissue removal (SURG) 2024 025 [email or web address] Not available 03/27/2025 07:19:44 nasal/sin us endoscopy , surgical with ethmoidec luis alberto, total, including sphenoido luis alberto, with removal of tissue from the sphenoid sinus (SURG) 2024 025 [email or web address] Not available 03/27/2025 07:19:44 stereotac tic computer- assisted navigatio n (SURG) 2024 025 [email or web address] Not available 03/27/2025 07:19:44 endoscopy , nasal and sinus (SURG) 2024 025 [email or web address] Not available 03/27/2025 07:19:[address], sinuses, w/o contrast 2024 025 [email or web address] [facility], [address] [place] [address], [address], 03/21/2025 16:07:54 Medication Orders fluticaso ne propionat e 50 mcg/actua tion nasal spray,jennifer pension 2024 025 ccomi Not available 03/09/2025 12:50:17 prednison e 10 mg tablet 2024 025 [email or web address] [id number], [address] [place], [address], 03/23/2025 11:01:42 doxycycli ne hyclate 100 mg tablet 2024 025 MARGUERITE [id number], [address] [place], [address], 03/15/2025 05:01:56 amoxicill in 875 mg-potass ium clavulana te 125 mg tablet 2024 025 [email or web address] Not available 03/15/2025 05:01:56 Diflucan 100 mg tablet 2024 025 MARGUERITE [id number], [address] [facility], [place], [address], 03/08/2025 05:01:54 Patient TargetsNo targets recorded. Patient InstructionsNo instructions recorded. Reason for Referral None Reported. Results Created Date Observation Date Name Description Value Unit Range Abnormal Flag Note LastModifiedBy Organization Detail LastModifiedTime 03/19/2003/15/2025 CT, sinus es, w/o contr ast No observ ation record ed. [email or web address] [facility] [address] [facility] [address], [place], [address], 03/20/2025 17:05:06 Result Notes None recorded. Problems Name Problem SNOMED Code Status Onset Date Resolution Date Notes Provider Name and Address Organization Details Recorded Time Chronic rhinitis 72976723 Active 2024 Long Thomas DO [address] [place] [address], [place], [address], [facility] - [facility] 08:18:33 Chronic sinusitis 59155773 Active 2024 Long Thomas DO [address] [place] [address], [place], [address], [facility] - [facility] 5 11:25:03 Allergic rhinitis caused by pollen 58816499 Active 2024 Long Thomas DO [address] [address], [address], [facility] - [facility] [place] 5 11:42:17 Nasal congestion 94739430 Active 2024 Long Thomas DO [address] [address], [place], [address], [facility] - [facility] [place] 11:42:36 Dysphonia 73762232 Active 2024 Long Thomas, DO [address] [address], [place], [address], [facility] - [facility] [place] 11:59:00 Rhinitis medicamentosa 69670490 Active 2024 Long Thomas, [address] [address], [place], [address], [facility] [place] 12:29:02 Polyp of nasal cavity and/or nasal sinus 047829603 Active 2024 Long Thomas, [address] [address], [place], [address], [facility] [place] 11:25:03 Deviated nasal septum 085804081 Active 2024 Long Thomas [address] [address], [place], [address], [facility] [place] 11:25:03 Hypertrophy of nasal turbinates 14362912 Active 2024 Long Thomas [address] [address], [place], [address], [facility] [place] 11:25:03 Problem Notes None recorded. Procedures Surgical History Date Name Laterality Status Provider Name and Address Organization Details Recorded Time 02/22/2025 Nasal Endo DDx_DHL completed Long Thomas [address], [address], [facility] [place] 02/22/2025 11:58:30 Imaging Results None recorded. Procedure Notes None recorded. Medical Equipment None Reported. Allergies No known drug allergies Medications Name Sig Start Date Stop Date Status Note LastModified by Organization Details LastModified Time prednisone 10 mg tablet TAKE 4 TABS ORALLY X3DAYS, 3 TABS X3DAYS, 2 TABS X3DAYS, THEN 1 TAB X3DAYS 03/23 completed Not Available Not Available Not Available azithromyci n 250 mg tablet TOME 2 TABLETAS V A ORAL HOY, [place] TOME 1 TABLETA DIARIAMEN TE PINA 4 D SEG N LAS INDICACIO SOURAV 01/27 completed Not Available Not Available Not Available metoprolol succinate ER 100 mg tablet,exte nded release 24 hr TAKE 1 TABLET BY MOUTH 1 TIME EACH DAY. DO NOT CRUSH OR CHEW. active Not Available Not Available No t Available clonazepam 1 mg tablet TOME 1 TABLETA POR V A ORAL TODOS LOS D AL ACOSTARSE CUANDO SEA NECESARIO PARA DORMIR active Not Available Not Available No t Available valsartan 80 mg tablet TOME 1 TABLETA POR V A ORAL TODOS LOS D active Not Available Not Available No t Available famotidine 20 mg tablet TOME 1 TABLETA POR V A ORAL DOS VECES AL D A active Not Available Not Available No t Available Diflucan 100 mg tablet Take 1 tablet every day by oral route for 7 days. 03/08 completed Not Available Not Available Not Available meclizine 25 mg tablet TOME 1 TABLETA POR V A ORAL CADA 8 HORAS CUANDO SEA NECESARIO FOR 30 DAYS active Not Available Not Available No t Available amlodipine 10 mg tablet TAKE 1 TABLET BY MOUTH 1 TIME EACH DAY. active Not Available Not Available No t Available gabapentin 300 mg capsule TOME 1 C PSULA POR V A ORAL DOS VECES AL D A FOR 1 WEEK, THEN 1 CAP 3 TIMES DAILY active Not Available Not Available No t Available montelukast 10 mg tablet TOME 1 TABLETA POR VIA ORAL TODOS LOS PALMA AL ACOSTARSE active Not Available Not Available No t Available levothyroxi ne 200 mcg tablet TAKE 1 TABLET (200 MCG TOTAL) BY MOUTH 1 (ONE) TIME EACH DAY BEFORE BREAKFAST . active Not Available Not Available No t Available azelastine 137 mcg (0.1 %) nasal spray ADMINISTE R 2 SPRAYS INTO EACH NOSTRIL 1 (ONE) TIME EACH DAY. DIRECTED active Not Available Not Available No t Available albuterol sulfate HFA 90 mcg/actuati on aerosol inhaler INHALE 2 PUFFS INTO THE LUNGS EVERY 4 HOURS NEEDED FOR COUGH, WHEEZING OR SHORTNESS OF BREATH. active Not Available Not Available No t Available celecoxib 100 mg capsule TAKE 1 CAPSULE BY MOUTH 2 TIMES A DAY WITH MEALS. 02/22 completed Not Available Not Available Not Available fluticasone propionate 50 mcg/actuati on nasal spray,suspe nsion [place] 2 sprays every day by intranasa l route for 30 days. 2024 active Not Available Not Available Not Avai lable doxycycline hyclate 100 mg tablet Take 1 tablet twice a day by oral route for 14 days. 03/15 completed Not Available Not Available Not Available amoxicillin 875 mg-potassiu m clavulanate 125 mg tablet Take 1 tablet every 12 hours by oral route for 14 days. 03/15 completed Not Available Not Available Not Available Laxative (bisacodyl) 5 mg tablet,edson yed release TAKE 2 TABLETS BY MOUTH RIGHT BEFORE BEGINNING BOWEL PREP. SEE INSTRUCTI ONS PROVIDED BY THE OFFICE 02/22 completed Not Available Not Available Not Available aripiprazol e 10 mg tablet TOME 1 TABLETA POR V A ORAL TODOS LOS D EN LA MA JOSIAH 03/23 completed Not Available Not Available Not Available Restasis 0.05 % eye drops in a dropperette PONGA LATASHA GOTA EN LOS DOS OJOS DOS VECES AL D A active Not Available Not Available No t Available aripiprazol e 5 mg tablet TOME 1 TABLETA POR V A ORAL TODOS LOS D EN LA MA JOSIAH active Not Available Not Available No t Available bupropion HCl XL 300 mg 24 hr tablet, extended release TOME 1 TABLETA POR V A ORAL TODOS LOS D active Not Available Not Available No t Available levocetiriz ine 5 mg tablet TOME 1 TABLETA POR V A ORAL TODOS LOS D EN LA NOCHE active Not Available Not Available No t Available GaviLyte-G 236 gram-22.74 gram-6.74 gram-5.86 gram oral solution PLEASE SEE ATTACHED FOR DETAILED DIRECTION S 02/22 completed Not Available Not Available Not Available Vitals Date Recorded Body height Body mass index (BMI) Body weight Provider Name and Address Organization Details Last Updated DateTime 02/22/2025 165.1 cm 38.8 kg/m2 987588.02 g Yvonne Carlos [place] - [facility] 02/22/2025 10:17:05 Social History None recorded. Functional Status None recorded. Mental Status None recorded. Family History Nothing Reported. Medical History Condition Response Arthritis Y Anxiety Y Migraines Y Thyroid Problems Y Hypertension Y Depression Y Asthma Y Past Encounters Encounter ID Performer Location Encounter Start Date Encounter Closed Date Diagnosis/Indication Diagnosis SNOMED-CT Code Diagnosis ICD10 Code Diagnosis IMO Codes Diagnosis Note [id number] Long Thomas DO [facility] [address] [address] 02/22/2025 10:00:22 02/22/2025 12:28:44 Chronic rhinitis 33357877 J31.0 Chronic sinusitis 832791 00 J32.8 Allergic r hinitis caused by pollen 09617693 J30.5 3269561082 Nasal congestion 1224558 0 R09.81 63228 Dysphonia 28137011 R49.0 88615 Rhinitis medicamentosa 45083556 J31.0 T48.5X5A 575485 [id number] Long Thomas DO [facility] [address] [address] 03/23/2025 10:35:38 03/23/2025 11:27:52 Chronic sinusitis 17868801 J32.8 13793 Polyp of n carlos cavity and/or nasal sinus 787616043 J33.9 056455 Deviated nasal septum 12 7457233 J34.2 35789 Hypertroph y of nasal turbinates 03926922 J34.3 8132170 Health Concerns Section Related Observation LastModified by Organization Detai ls LastModified Time None Recorded Concern Status LastModified by Organization Details LastModified Time None Recorded Advance Directives Directive None Recorded Payers Insurance Date Sequence Insurance Name Policy Number Policy Mora Covered Member ID Mroa Member ID Guarantor Name 03/20/2025 1 [facility] - DOS ON OR AFTER 2022 - MEDICARE ADVANTAGE [place] (MEDICARE REPLACEMENT/ADV ANTAGE - PPO) Srikanth Mahoney [id number] Srikanth Mahoney Notes Date Note Type Note Provider Name and Address Organization Details Recorded Time text/html ROS as noted in the HPI The patient presents today with sinus concerns. 3 years. Current Symptoms: Nasal blockage, congestion , Rhinorrhea, PND, sneezingNasal Sprays: Using Nasal Saline, Nasal Steroid, . Using AfrinAllergy Tx: Daily OTC AntihistaimeCourses of Antibiotics and steroids: None in 1 yearImmunotherapy Trials: None Prior Allergy Testing: NonePrior imaging: NoneHx of Asthma: Yes, Inhalers.Hx of NSAID/ASA sensitvity: NoPrior Sinus Surgery: No Long William, DO [address] [facility] [address], [place], [address], [place] - [facility] 02/22/2025 12:32:42 5 text/html ROS as noted in the HPI Interval history: Still with stuff nose and wakes him up. Using sprays. Doing a little better overall., CT from 03/15/2025 was personally reviewed and interpreted which showed the following findings: Bilateral exposed anterior/posterior ethmoid arteries. Bilateral type III Ivania cells. Primarily right sided nasal polyp looks like it is emanating from the frontal sinus outflow tract that is obstructing the [facility] on the right. He does also have a simone bullosa on the left. With scattered ethmoid and sphenoid opacification. Previously: I saw the patient for chronic sinusitis, rhinitis medicamentosa, and fungal laryngitis. He had been dealing with symptoms on and off for years. He had used saline, fluticasone, and chronic Afrin.Allergy Tx: Daily OTC AntihistaimeCourses of Antibiotics and steroids: None in 1 yearImmunotherapy Trials: None Prior Allergy Testing: NonePrior imaging: NoneHx of Asthma: Yes, Inhalers.Hx of NSAID/ASA sensitvity: NoPrior Sinus Surgery: No Long Thomas, DO [address] [facility] [address], [place], [address], [place] - [facility] 03/23/2025 11:26:08
[2025-04-13 08:01] LABS: MANUAL DIFF FLAG NO
[2025-04-13 08:17] LABS: Hematocrit 48.8 % (42.0-52.0); Hemoglobin 17.0 g/dl (14.0-18.0); Imm Gran Abs Auto 0.02 X10*3/uL (0.00-0.03); Imm Gran Pct Auto 0.3 % (0.0-0.4); Lymphocytes Absolute Auto 2.1 X10*3/uL (1.2-4.9); Mean Corpuscular HGB Conc 34.8 g/dl (31.0-36.0); Mean Corpuscular Hemoglobin 32.1 pg (27.0-33.0); Mean Corpuscular Volume 92.2 fL (80.0-98.0); NRBC Abs Auto 0.000 X10*3/uL (0.0-0.012); NRBC Pct Auto 0.0 /100WBC (0.0-0.2); Platelet Count 190 X10*3/uL (160-400); Red Blood Count 5.29 X10*6/uL (4.60-5.80); White Blood Count 6.6 X10*3/uL (4.8-10.8)
[2025-04-13 08:48] LABS: Alanine Aminotransferase 25 U/L (0-40); Albumin Level 4.0 g/dL (3.5-5.0); Alkaline Phosphatase 101 U/L (39-117); Anion Gap 10 (12-20); Aspartate Amino Transferase 21 U/L (5-37); Blood Urea Nitrogen 17 mg/dL (9-16); Calcium 9.3 mg/dL (8.4-10.2); Carbon Dioxide 30 mmol/L (22-29); Chloride 105 mmol/L (96-108); Cholesterol 196 mg/dL (<200); Estimated Glomerular Filt Rate > 60; HDL Cholesterol 36 mg/dL (>40); Potassium 4.0 mmol/L (3.3-5.1); Sodium 141 mmol/L (135-145); Total Protein 7.2 g/dL (6.5-8.0); Triglycerides 308 mg/dL (<150)
[2025-04-13 09:00] LABS: HBS Num1 2.07 mIU/mL (0-7.99); HBc Num1 0.06 S/CO (0.00-0.79); HBsAGNum1 0.37 S/CO (0.00-0.99); HIV Num 1 0.11 S/CO (0.00-0.99); Hepatitis B Surface Antigen Negative (Negative); Prostate Specific Antigen 0.22 ng/mL (<0.05-4.0); ~HepC Num1 0.07 S/CO (0.00-0.79); ~Hepatitis B Surface Antibody NONREACTIVE (Nonreactive); ~Hepatitis C Antibody Nonreactive (Nonreactive)
[2025-04-13 09:15] LABS: Microalbum/Creatinine Ratio Ur 3.1 ug/mg cr (<30)
[2025-04-19 15:18] LABS: Vitamin D 25-OH, D2 <4 ng/mL; Vitamin D 25-OH, D3 40 ng/mL; Vitamin D 25-OH, Total 40 ng/mL (30-100)
== END 2025-04-13 07:47 | disposition home or self-care (01) ==
LOC: HO.LAB 07:46
PROVIDERS: PCP Internal Medicine; Visit Provider Internal Medicine
DX: Z00.00 Encounter for general adult medical examination without abnormal findings (principal); Z11.4 Encounter for screening for human immunodeficiency virus [HIV]; Z12.5 Encounter for screening for malignant neoplasm of prostate; Z13.29 Encounter for screening for other suspected endocrine disorder; Z13.6 Encounter for screening for cardiovascular disorders; Z13.21 Encounter for screening for nutritional disorder; Z13.1 Encounter for screening for diabetes mellitus
CPT/HCPCS: 36415; 80053; 80061; 82043; 82306; 82570; 83036; 84153; 84443; 85025; 86704; 86706; 86803; 87340; 87389